=== PATIENT | male | born 1950 | race Caucasian/White ===

== ENCOUNTER 2020-12-08 06:00 | Emergency (ER) | payer MEDICARE, SELFPAY ==
[2020-12-08 06:00] VITALS: BP 177/81; PULSE 82; RESP 16; TEMP 36.2; O2SAT 97; BMI 28.0
--- NOTE | 2020-12-08 06:15 | RAD_ITS ---
STUDY: X-RAY - PELVIS AND RIGHT HIP REASON FOR EXAM: Male, 70 years old. Pain. TECHNIQUE: 3 views of the pelvis and hip. COMPARISON: None. FINDINGS: No visible fracture. No osseous destruction. Alignment anatomic. Mild degenerative changes. Soft tissues unremarkable. RAD/HIP, UNI W/ Pelvis 2-3 Views IMPRESSION: No acute osseous abnormality. Electronically Signed: Vamsi Garner MD at 7:48 EDT Tel , Service support ,
--- NOTE | 2020-12-08 06:16 | EX.ED.DYSGE1 ---
HPI History of Present Illness Chief Complaint: Lower Extremity Injury Informant: patient Onset/Context/Timing Onset: Weeks (3 weeks) Current Severity: Mild Maximum Severity: Severe Narrative Narrative: Patient presents secondary to right hip pain. He describes a fall that he had 3 weeks ago. He was carrying some things up some steps when he caught his foot and fell backwards. He states he had pain in his neck and across his upper shoulders at that time. About a week later he developed pain in his right hip. It initially did not hurt after the fall. Patient does note has been doing more yard work recently with a lot of bending in his garden as well. Hip was starting to improve last week but over the last 2 or 3 days has significantly worsened. He describes pain in the posterior portion of the hip and shooting down his leg. He did have some pain in his lower back this morning. Patient did take oxycodone approximately 2 hours prior to arrival. [facility] Medical History (Updated 12/08/20 @ 08:[address] Yvette Pinon MD) Anxiety BPH (benign prostatic hyperplasia) Diabetes Hyperlipemia Hypertension Home Medications cyclobenzaprine 10 mg PO BID PRN #10 tab 12/08/20 [Rx Last Taken Unknown] hydrochlorothiazide 25 mg PO DAILY 12/08/20 [History Last Taken Unknown] hydroxyzine HCl 10 mg PO BID PRN 12/08/20 [History Last Taken Unknown] lisinopril 20 mg PO DAILY 12/08/20 [History Last Taken Unknown] metoprolol tartrate 25 mg PO BID 12/08/20 [History Last Taken Unknown] oxycodone-acetaminophen [Percocet] 1 tab PO Q6H PRN 3 Days #10 tab 12/08/20 [Rx Last Taken Unknown] prednisone See Taper PO DAILY #42 tab 12/08/20 [Rx Last Taken Unknown] simvastatin 40 mg PO DAILY 12/08/20 [History Last Taken Unknown] Allergy/AdvReac Type Severity Reaction Status Date / Time No Known Allergies Allergy Verified 12/08/20 06:05 Surgical History Hx of tonsillectomy Social History Smoking Status: Former smoker ROS ROS ED Constitutional Constitutional ED: Denies chills or fever(s) Eyes Eyes: Denies change in vision ENT ENT ED: Denies sore throat Cardiovascular Cardiovascular: Denies chest pain Respiratory/Chest Respiratory/Chest: Denies cough or dyspnea Gastrointestinal Gastrointestinal: Denies abdominal pain, diarrhea, nausea or vomiting Genitourinary Genitourinary ED: Denies dysuria Musculoskeletal Musculoskeletal: Reports arthralgias and back pain Integumentary Denies rash Neurologic Neurologic: Denies headache(s) or weakness Psychiatric Psychiatric: Denies anxiety or depression Endocrine Endocrinology: Denies polydipsia or polyuria Allergic/Immunologic Allergic/Immunologic ED: Denies urticaria EXAM Physical Exam Const Vital Signs: 12/08/20 06:00 12/08/20 07:37 Temperature 97.1 F L Temperature Source Temporal Pulse Rate 82 81 Respiratory Rate 16 18 Blood Pressure 177/81 H 172/92 H Blood Pressure Mean 113 118 Pulse Ox 97 96 Oxygen Delivery Method Room Air Room Air Positive well nourished and well developed General Appearance ED: well developed HEENT Reports normocephalic and head/scalp atraumatic Eyes PERRL and EOMs intact bilaterally Neck supple Chest Wall inspection of chest normal and palpation of chest normal Resp normal respiratory effort and clear to auscultation bilaterally Cardio regular rate and regular rhythm GI normal to inspection, nondistended, normoactive bowel sounds and no masses Palpation: soft Back/Spine Back/Spine Narrative: Tenderness in the right low lumbar paraspinal muscles and over the right sciatic notch. Extremity normal to inspection Extremity Narrative: Strong distal pulses. Full range of motion. Neuro oriented x3 and no sensory deficits noted Sensorium / Orientation: alert Motor Exam: strength 5/5 throughout Psych mental status grossly normal Skin no rashes or lesions noted MDM MDM MDM Narrative Medical decision making narrative: On initial evaluation patient's pain was controlled with the oxycodone he had taken. He was given a dose of Solu-Medrol to help with sciatica. X-rays of the pelvis and hip are ordered. Radiography Diagnostic Testing: Radiology Impression Hip/Pelvis X-Ray 12/08/20 06:15 IMPRESSION: No acute osseous abnormality. Electronically Signed: Vamsi Garner MD at 7:48 EDT Tel , Service support , Treatment and Re-Evaluation Comments:: Pelvis and hip x-ray per my interpretation reveal no obvious acute injury. However, after going to x-ray and back patient's pain was worsened. He was given a dose of Dilaudid and Zofran. On repeat evaluation pain is improved and patient is able to lie comfortably. Test results discussed with him. He will be given a prescription for Percocet, prednisone, Flexeril. Discharge Plan Triage Chief Complaint: Lower Extremity Injury ED Provider: Yvette Pinon Dx/Rx/DC Orders Clinical Impression: Sciatica Instructions: ED Sciatica Prescriptions: New oxycodone-acetaminophen [Percocet] 5-325 mg tablet 1 tab PO Q6H PRN (Reason: pain) 3 Days Qty: 10 RF: 0 cyclobenzaprine 10 mg tablet 10 mg PO BID PRN (Reason: muscle spasm) Qty: 10 RF: 0 prednisone 10 mg tablet See Taper mg PO DAILY Qty: 42 RF: 0 No Action lisinopril 20 mg Tablet 20 mg PO DAILY RF: 0 simvastatin 40 mg Tablet 40 mg PO DAILY RF: 0 hydrochlorothiazide 25 mg Tablet 25 mg PO DAILY RF: 0 hydroxyzine HCl 10 mg Tablet 10 mg PO BID PRN (Reason: Anxiety) RF: 0 metoprolol tartrate 25 mg Tablet 25 mg PO BID RF: 0 [facility] [facility] [[facility] - 1 Week if not improving Disposition Disposition: Home, Self Care
[2020-12-08] MEDS: MethylPREDNISolone 125 MG/2 ML Vial IV (06:21)
[2020-12-08] MEDS: Ondansetron 4 MG/2 ML Vial IV (07:30)
[2020-12-08] MEDS: HYDROmorphone 0.5 MG/0.5 ML SYRINGE IV (07:30)
[2020-12-08 07:37] VITALS: BP 172/92; PULSE 81; RESP 18; O2SAT 96
[2020-12-08 08:22] VITALS: BP 158/71; PULSE 79; RESP 15; O2SAT 96
== END 2020-12-08 08:23 | disposition home or self-care (01) ==
PROVIDERS: Emergency Provider Emergency Medicine
DX: M54.40 Lumbago with sciatica, unspecified side (principal); M25.551 Pain in right hip; E11.9 Type 2 diabetes mellitus without complications; I10 Essential (primary) hypertension; E78.5 Hyperlipidemia, unspecified; N40.0 Benign prostatic hyperplasia without lower urinary tract symptoms; F41.9 Anxiety disorder, unspecified; Z79.52 Long term (current) use of systemic steroids; Z79.899 Other long term (current) drug therapy; Z87.891 Personal history of nicotine dependence
CPT/HCPCS: 73502; 96374; 96375; 99284; A4216; J2405

== ENCOUNTER 2021-07-05 18:50 | Emergency (ER) | payer MEDICARE, OTHER, SELFPAY ==
[2021-07-05 18:51] VITALS: BP 169/77; PULSE 103; PULSE 98; RESP 18; TEMP 36.9; O2SAT 97; BMI 28.8
--- NOTE | 2021-07-05 20:06 | EDS_ITS ---
HPI History of Present Illness Chief Complaint: Complaint Informant: patient Onset/Context/Timing Onset: Days Context: Gradual Onset Narrative Narrative: Patient presents secondary to dysuria. He had bladder surgery performed on June 23 at [facility]. Patient states that he been doing well until a few days ago and has noted dysuria and burning with urination. He does self cath 2-3 times a day. He denies fever. He does report some mild suprapubic pain and just this evening started noticing some pain in his left flank. PFSH PFS Medical History Anxiety BPH (benign prostatic hyperplasia) Diabetes Hyperlipemia Hypertension Home Medications hydrochlorothiazide 25 mg PO DAILY 12/08/20 [History Last Taken Unknown] hydroxyzine HCl 10 mg PO BID PRN 12/08/20 [History Last Taken Unknown] lisinopril 20 mg PO DAILY 12/08/20 [History Last Taken Unknown] metoprolol tartrate 25 mg PO BID 12/08/20 [History Last Taken Unknown] simvastatin 40 mg PO DAILY 12/08/20 [History Last Taken Unknown] meloxicam 15 mg PO QWEEK 07/05/21 [History Last Taken Unknown] sulfamethoxazole-trimethoprim [Bactrim DS] 1 tab PO BID #6 tab 07/05/21 [Rx Last Taken Unknown] Allergy/AdvReac Type Severity Reaction Status Date / Time No Known Allergies Allergy Verified 12/08/20 06:05 Surgical History Hx of tonsillectomy Social History Smoking Status: Former smoker ROS ROS ED Constitutional Constitutional ED: Denies chills or fever(s) Eyes Eyes: Denies change in vision ENT ENT ED: Denies sore throat Cardiovascular Cardiovascular: Denies chest pain Respiratory/Chest Respiratory/Chest: Denies cough or dyspnea Gastrointestinal Gastrointestinal: Reports abdominal pain; Denies diarrhea, nausea or vomiting Genitourinary Genitourinary ED: Reports dysuria Musculoskeletal Musculoskeletal: Reports back pain Integumentary Denies rash Neurologic Neurologic: Denies headache(s) or weakness Allergic/Immunologic Allergic/Immunologic ED: Denies urticaria EXAM Physical Exam Const Vital Signs: 07/05/21 18:51 07/05/21 21:23 Temperature 98.5 F Temperature Source Temporal Pulse Rate 98 105 H Respiratory Rate 18 15 Blood Pressure 169/77 H 170/80 H Blood Pressure Mean 107 110 Pulse Ox 97 96 Oxygen Delivery Method Room Air Room Air Positive well nourished and well developed General Appearance ED: well developed HEENT Reports moist mucous membranes Eyes PERRL and EOMs intact bilaterally Neck no lymphadenopathy and supple Chest Wall inspection of chest normal and palpation of chest normal Resp normal respiratory effort and clear to auscultation bilaterally Cardio regular rate and regular rhythm GI Palpation: soft and tender suprapubic Back/Spine Back/Spine Narrative: Minimal tenderness of the left CVA region. No tenderness on the right. Extremity normal to inspection Neuro oriented x3 Sensorium / Orientation: alert Psych mental status grossly normal Skin no rashes or lesions noted MDM MDM MDM Narrative Medical decision making narrative: Post void bladder scan performed. Patient voided 110 cc and 41 cc noted on residual. Urinalysis sent. Lab Data Labs: Laboratory Results - last 24 hr 07/05/21 07/05/21 07/05/21 19:53 21:23 21:23 WBC 16.0 H RBC 4.63 Hgb 14.8 Hct 42.2 MCV 91.1 MCH 32.0 MCHC 35.1 RDW Std Deviation 41.8 RDW Coeff of [place] 12.7 Plt Count 188 MPV 10.1 Immature Gran % (Auto) 0.400 Neut % (Auto) 77.1 H Lymph % (Auto) 11.5 L [place] % (Auto) 9.9 Eos % (Auto) 0.7 Baso % (Auto) 0.4 Absolute Neuts (auto) 12.4 H Absolute Lymphs (auto) 1.84 Nucleated RBC % 0 Differential Comment SCANNED Diff Path Review May foll Sodium 137 Potassium 3.9 Chloride 104 Carbon Dioxide 25.0 Anion Gap 8 BUN 18 Creatinine 0.99 Estim Creat Clear Calc 64.29 Est GFR (MDRD) Af Amer 96 Est GFR (MDRD) Non-Af 79 BUN/Creatinine Ratio 18.2 Glucose 184 H Calcium 9.0 Urine Color Yellow Urine Clarity Sl. Cloudy Urine pH 5.0 Ur Specific [place] 1.015 Urine Protein 100 H Urine Glucose (UA) Normal Urine Ketones Negative Urine Occult Blood 250 H Urine Nitrite Negative Urine Bilirubin Negative Urine Urobilinogen Normal Ur Leukocyte Esterase 25 H Urine RBC 25-50 SEEN Urine WBC 10-25 SEEN Ur Squamous Epith Cells 0 SEEN Urine Bacteria 0 SEEN Urine Mucus 0 SEEN Radiography Diagnostic Testing: Clinical Impression(s) from Imaging Studies Abdomen/Pelvis CT 07/05/21 21:30 IMPRESSION: (NOT LISTED IN ORDER OF SIGNIFICANCE) Left sided thickening of the wall of the urinary bladder. This is causing left hydronephroureter. Left sided urinary bladder neoplasm is of concern. There are findings suggesting a disc herniation at L4-5. MRI can better evaluate. Nonspecific mesenteric stranding Treatment and Re-Evaluation Comments:: Urinalysis does show 25-50 RBCs and 10-25 white cells. No bacteria is noted and nitrites are negative. In light of this lab work and CT flank obtained. Lab work reveals elevated white count of 16.0 with 77% neutrophils. Chemistry studies reveal normal renal function. CT flank reveals thickening of the left bladder wall causing left hydronephroureter. Left-sided urinary bladder neoplasm is of concern. Patient states the bladder he just had was to remove a bladder tumor. With patient performing self cath and having white cells in his urine he will be covered with an antibiotic and urine will be sent for culture. My hope is that by decreasing inflammation in the bladder wall the hydronephrosis will also improve. Patient is to follow-up with his urologist in the next 1 to 2 weeks. Return instructions provided. Discharge Plan Triage Chief Complaint: Complaint ED Provider: Yvette Pinon Dx/Rx/DC Orders Clinical Impression: UTI (urinary tract infection) Instructions: ED Bladder Infection, Male (Adult) Prescriptions: New sulfamethoxazole-trimethoprim [Bactrim DS] 800-160 mg tablet 1 tab PO BID Qty: 6 RF: 0 No Action lisinopril 20 mg Tablet 20 mg PO DAILY RF: 0 simvastatin 40 mg Tablet 40 mg PO DAILY RF: 0 hydrochlorothiazide 25 mg Tablet 25 mg PO DAILY RF: 0 hydroxyzine HCl 10 mg Tablet 10 mg PO BID PRN (Reason: Anxiety) RF: 0 metoprolol tartrate 25 mg Tablet 25 mg PO BID RF: 0 meloxicam 15 mg Tablet 15 mg PO QWEEK RF: 0 [facility] [facility] [facility] [Primary Care Provider] - 1 Week Disposition Disposition: Home, Self Care
[2021-07-05 20:39] LABS: Bacteria 0 SEEN /hpf (None Seen); Mucous, Urine 0 SEEN /hpf (<or=2+); Squamous Epithelial Cells - UA 0 SEEN /hpf (0-5)
[2021-07-05 20:42] LABS: Color, Urine Yellow (Yellow); Glucose, Dipstick Normal (Normal); Ketone-Dipstick Negative (Negative); Leukocyte Esterase-Dipstick 25 /ul (Negative); Nitrite-Dipstick Negative (Negative); Occult Blood-Urine 250 /ul (Negative); Protein-Dipstick 100 mg/dl (Negative); Specific Gravity, Urine 1.015 (1.002-1.030); Urine Bilirubin Dipstick Negative (Negative); Urine Clarity Sl. Cloudy (Clear); Urine Urobilinogen Normal (Normal)
[2021-07-05 20:55] LABS: Red Blood Cells-Urine 25-50 SEEN /hpf (0-5); White Blood Cells 10-25 SEEN /hpf (0-5)
[2021-07-05 21:23] VITALS: BP 170/80; PULSE 105; RESP 15; O2SAT 96
--- NOTE | 2021-07-05 21:30 | CT_ITS ---
STUDY: CT Abdomen And Pelvis W/O Contrast Injection 07/05/2021 9:45 PM REASON FOR EXAM: Male, 71 years old. had TURP done 2 weeks ago now having pain with frequent urination pain flank pain Individualized dose optimization techniques were used for this CT. COMPARISON: None. TECHNIQUE: CT Abdomen And Pelvis W/O Contrast Injection FINDINGS: There are atherosclerotic calcifications of visualized coronary arteries. The visualized portions of the heart are within normal limits. Normal liver. Normal gallbladder and extrahepatic biliary system. Normal spleen. Normal pancreas. Normal bilateral adrenal glands. Non obstructive 6mm right renal parenchymal stones. There is a small hiatal hernia. Normal small intestine. Stool throughout the colon. There is non-visualization of the appendix. There are calcifications of the abdominal aorta. This is consistent for atherosclerotic disease. There is no abdominal aortic aneurysm. Normal inferior vena cava. Left sided thickening of the wall of the urinary bladder. This is causing left hydronephroureter. Left sided urinary bladder neoplasm is of concern.Nonspecific mesenteric stranding. Differential includes mesenteric panniculitis, hypo-albuminemia, sequela of superior mesentery vein thrombosis, mesenteric edema, lymphedema, inflammation, and trauma. Normal abdominal wall. There are diffuse degenerative changes of the visualized lumbar spine. There is bilateral neural foraminal stenosis at L4-5 and L5-S1. There are findings suggesting a disc herniation at L4-5. MRI can better evaluate. IMPRESSION: (NOT LISTED IN ORDER OF SIGNIFICANCE) Left sided thickening of the wall of the urinary bladder. This is causing left hydronephroureter. Left sided urinary bladder neoplasm is of concern. There are findings suggesting a disc herniation at L4-5. MRI can better evaluate. Nonspecific mesenteric stranding Other findings as above. Electronically Signed: Lennox Mullen MD at 21:49 EST Reading Location ID and State: [facility] / [place] , Service support , CT/Abdomen/Pelvis without Cont
[2021-07-05 21:33] LABS: Absolute Lymphocyte Count 1.84 X10^3/uL (0.83-4.51); Absolute Neutrophil Count 12.4 X10^3/uL (2.0-7.7); Basophil# 0.06 X10^3/uL; Basophil% 0.4 % (0-1); Eosinophil# 0.11 X10^3/uL; Eosinophils% 0.7 % (0-5); Hematocrit 42.2 % (40-54); Hemoglobin 14.8 g/dL (13.0-16.5); Lymphocyte # 1.84 X10^3/ul (0.83-4.51); Lymphocyte % 11.5 % (19-41); Mean Corp Hgb Conc 35.1 g/dL (32-36); Mean Corpuscular Volume 91.1 fL (80-94); Mean Platelet Vol. 10.1 fl (6.2-12.0); Monocyte# 1.59 X10^3/uL; Monocyte% 9.9 % (0-10); NRBC Flagged by Analyzer 0 % (0-5); Neutrophil # 12.37 X10^3/uL (2.7-7.7); Neutrophil % 77.1 % (47-70); POSITIVE DIFFERENTIAL YES; Platelet Count 188 K/mm3 (150-450); RBC Distribution Width CV 12.7 % (11.6-14.6); RBC Distribution Width SD 41.8 fl (35.1-43.9); Red Blood Count 4.63 M/mm3 (4.6-6.2)
[2021-07-05 21:42] LABS: Differential Indicated SCAN CRITERIA MET
[2021-07-05 21:51] LABS: Anion Gap 8 (5-15); BUN 18 mg/dL (7-18); BUN/Creat Ratio 18.2 RATIO (10-20); Chloride 104 mmol/L (98-107); Creatinine, Serum 0.99 mg/dL (0.70-1.30); EST Glomerular Filtration Rate 79 mL/min (>60); Est Glom Filt Rate - Afr Amer 96 mL/min (>60); Estimated Creatinine Clearance 64.29 ml/min; Glucose 184 mg/dL (74-106); Potassium 3.9 mmol/L (3.5-5.1); Sodium Level 137 mmol/L (136-145)
[2021-07-05 22:19] LABS: Differential Comment SCANNED
[2021-07-05] MEDS: Smz/Tmp Ds Tablet 1 TABLET PO (22:43)
[2021-07-05 22:47] VITALS: BP 170/80; PULSE 99; RESP 15; O2SAT 96
[2021-07-07 09:28] LABS: Pathologist Review Reviewed
== END 2021-07-05 22:48 | disposition home or self-care (01) ==
PROVIDERS: Emergency Provider Emergency Medicine; Visit Provider Emergency Medicine
DX: N39.0 Urinary tract infection, site not specified (principal); E11.9 Type 2 diabetes mellitus without complications; N13.30 Unspecified hydronephrosis; N40.0 Benign prostatic hyperplasia without lower urinary tract symptoms; Z87.891 Personal history of nicotine dependence; E78.5 Hyperlipidemia, unspecified; I10 Essential (primary) hypertension; Z79.1 Long term (current) use of non-steroidal anti-inflammatories (NSAID); Z79.899 Other long term (current) drug therapy; F41.9 Anxiety disorder, unspecified
CPT/HCPCS: 74176; 80048; 81001; 85025; 87086; 87088; 99284; A4216